=== PATIENT | male | born 1985 | race African-American/Black ===

== ENCOUNTER 2021-09-28 13:00 | Inpatient (IN) | payer SELFPAY ==
[2021-09-28] MEDS ORDERED: Ondansetron PF 4 MG/2 ML Vial ONE (13:29)
[2021-09-28 14:04] LABS: #Monocytes 0.6 10x3/uL (0.0-1.1); #Neutrophils 1.9 10x3/uL (1.5-8.4); %Basophils 0.2 % (0.0-2.0); %Eosinophils 0.2 % (0.0-6.0); %Monocytes 13.8 % (0.0-10.0); %Neutrophils 42.6 % (40.0-75.0); Hemoglobin 16.1 g/dL (13.5-17.5); Mean Corpuscular Hemoglobin 27.3 pg (27.0-33.0); Mean Corpuscular Volume 80.2 fl (81.2-95.1); Mean Platelet Volume 12.9 fl (7.4-10.4); Platelet Count 210 10x3/uL (150-450); RBC Distribution Width 13.7 % (11.5-14.5); White Blood Cell (WBC) Count 4.4 10x3/uL (3.5-10.5)
[2021-09-28 14:15] LABS: ALT (SGPT) 79 U/L (8-55); AST (SGOT) 111 U/L (5-34); Albumin 4.9 g/dL (3.5-5.0); Alkaline Phosphatase 55 U/L (40-110); Anion Gap 18 mmol/L (10-20); BUN (Urea Nitrogen) 24 mg/dL (8.9-20.6); Calc. Creatinine Clearance 0 mL/min (70-130); Calcium 11.3 mg/dL (7.8-10.44); Carbon Dioxide 27 mmol/L (22-29); Chloride 87 mmol/L (98-107); Estimated GFR 37; Globulin 5.1 g/dL (2.4-3.5); Glucose 120 mg/dL (70-105); Lipase 15 U/L (8-78); Potassium 4.3 mmol/L (3.5-5.1); Sodium 128 mmol/L (136-145)
[2021-09-28] MEDS ORDERED: Sodium Bicarbonate 75 MEQ in Dextrose 5% in Water 500 ML IV SCH (14:30)
[2021-09-28 14:52] LABS: SARS-CoV-2 NAA Rapid Test Not Detected (NotDetected)
[2021-09-28 14:56] LABS: Bilirubin Neg (Negative); Blood, Urine Negative (Negative); Clarity Clear (Clear); Glucose, Urine (Dipstick) Normal (Negative); Ketone, Urine 5 mg/dL (Negative); Leukocyte Negative (Negative); Nitrite Negative (Negative); Protein, Urine (Dipstick) Negative (Neg-Trace); Urobilinogen Normal mg/dL (Less than 2)
[2021-09-28 16:34] LABS: CKMB 6.8 ng/mL (0-6.6)
[2021-09-28] MEDS ORDERED: Ondansetron ODT 4 MG TAB PO PRN (16:51)
[2021-09-28] MEDS ORDERED: Acetaminophen 325 MG TAB PO PRN (16:51)
[2021-09-28] MEDS ORDERED: Acetaminophen 650 MG Suppository PR PRN (16:51)
[2021-09-28] MEDS ORDERED: Ondansetron PF 4 MG/2 ML Vial IVP PRN (16:51)
[2021-09-28] MEDS ORDERED: Guaifenesin DM 100-10/5 ML UDCUP PO PRN (16:51)
[2021-09-28 16:55] VITALS: BMI 33.7
[2021-09-28] MEDS ORDERED: Melatonin 3 MG TAB PO PRN (16:58)
[2021-09-28 19:05] LABS: Anion Gap 9 mmol/L (10-20); BUN (Urea Nitrogen) 21 mg/dL (8.9-20.6); Calc. Creatinine Clearance 88 mL/min (70-130); Calcium 10.5 mg/dL (7.8-10.44); Carbon Dioxide 34 mmol/L (22-29); Chloride 87 mmol/L (98-107); Estimated GFR 47; Glucose 82 mg/dL (70-105); Potassium 3.6 mmol/L (3.5-5.1); Sodium 126 mmol/L (136-145)
[2021-09-28] MEDS: Sodium Chloride 0.9% 1,000 ML IV SCH (19:31)
[2021-09-28] MEDS: Famotidine 20 MG TAB PO SCH (20:43)
[2021-09-29] MEDS: Sodium Chloride 0.9% 1,000 ML IV SCH (02:24)
[2021-09-29 03:59] LABS: Hemoglobin 14.8 g/dL (13.5-17.5); MDiff Complete? YES; Manual Diff?? YES; Mean Corpuscular Hemoglobin 27.7 pg (27.0-33.0); Mean Corpuscular Volume 81.3 fl (81.2-95.1); Mean Platelet Volume 12.4 fl (7.4-10.4); Platelet Count 170 10x3/uL (150-450); RBC Distribution Width 13.7 % (11.5-14.5); Red Blood Cell (RBC) Count 5.35 10x6/uL (4.32-5.72); White Blood Cell (WBC) Count 3.5 10x3/uL (3.5-10.5)
[2021-09-29 04:45] LABS: Eosinophils 1 % (0-10); Lymphocytes 54 % (21-51); Monocytes 18 % (0-10); Neutrophil 27 % (42-75)
[2021-09-29 04:46] LABS: Platelet Morphology Comment Appears Adequate; RBC Morphology Normal
[2021-09-29 09:00] LABS: Anion Gap 11 mmol/L (10-20); BUN (Urea Nitrogen) 16 mg/dL (8.9-20.6); Calc. Creatinine Clearance 106 mL/min (70-130); Calcium 9.6 mg/dL (7.8-10.44); Carbon Dioxide 33 mmol/L (22-29); Chloride 95 mmol/L (98-107); Estimated GFR 59; Glucose 99 mg/dL (70-105); Potassium 4.5 mmol/L (3.5-5.1); Sodium 134 mmol/L (136-145)
[2021-09-29] MEDS: Lactated Ringer's 1,000 ML IV SCH ×2 (09:00→17:43)
[2021-09-29] MEDS: Famotidine 20 MG TAB PO SCH ×2 (09:21→20:51)
[2021-09-29] MEDS: Enoxaparin Sodium 40 MG/0.4 ML SYRINGE SC SCH (10:13)
[2021-09-29] MEDS ORDERED: HYDROcodone/Acetaminophen 10/325 mg Tablet PO SCH (12:00)
[2021-09-29] MEDS: HYDROcodone/Acetaminophen 5/325 mg Tablet PO PRN ×2 (17:43→23:36)
[2021-09-30] MEDS: Lactated Ringer's 1,000 ML IV SCH ×3 (01:47→09:13)
[2021-09-30] MEDS ORDERED: Cyclobenzaprine 10 MG TAB PO SCH ×2 (03:00→09:30)
[2021-09-30 04:24] LABS: Anion Gap 16 mmol/L (10-20); BUN (Urea Nitrogen) 12 mg/dL (8.9-20.6); CK (CPK) 2231 U/L (30-200); Calc. Creatinine Clearance 120 mL/min (70-130); Carbon Dioxide 25 mmol/L (22-29); Chloride 100 mmol/L (98-107); Estimated GFR 69; Glucose 96 mg/dL (70-105); Potassium 4.5 mmol/L (3.5-5.1); Sodium 136 mmol/L (136-145)
[2021-09-30 04:34] VITALS: BP 165/98
[2021-09-30] MEDS: HYDROcodone/Acetaminophen 5/325 mg Tablet PO PRN ×2 (05:36→10:16)
[2021-09-30] MEDS: Enoxaparin Sodium 40 MG/0.4 ML SYRINGE SC SCH (09:14)
[2021-09-30] MEDS: Famotidine 20 MG TAB PO SCH (09:14)
[2021-09-30 10:03] VITALS: TEMP 97.8
== END 2021-09-30 11:45 | disposition home or self-care (01) | DRG 683 ==
LOC: CSHERS 13:00 → CSHTELE 15:44 → OBSVTOIN 09-30 06:48
PROVIDERS: ADMIT Internal Medicine; ATTEND Internal Medicine
DX: N17.9 Acute kidney failure, unspecified (principal); M62.82 Rhabdomyolysis; E87.1 Hypo-osmolality and hyponatremia; Z20.822 Contact with and (suspected) exposure to COVID-19; E86.0 Dehydration; I12.9 Hypertensive chronic kidney disease with stage 1 through stage 4 chronic kidney disease, or unspecified chronic kidney disease; D63.1 Anemia in chronic kidney disease; E83.51 Hypocalcemia; E83.52 Hypercalcemia; N18.30 Chronic kidney disease, stage 3 unspecified
CPT/HCPCS: 36415; 36416; 74150; 80048; 80053; 81003; 82550; 82553; 83690; 84484; 85025; 94760; G0378; J1650; J2405; J7050; J7070; J7120

== ENCOUNTER 2021-10-01 07:20 | Emergency (ER) | payer SELFPAY ==
[2021-10-01] MEDS ORDERED: Ondansetron PF 4 MG/2 ML Vial ONE (07:52)
[2021-10-01] MEDS ORDERED: Dexamethasone 10 MG/ML VIAL ONE (08:06)
[2021-10-01 08:20] LABS: #Monocytes 0.8 10x3/uL (0.0-1.1); #Neutrophils 5.2 10x3/uL (1.5-8.4); %Basophils 0.1 % (0.0-2.0); %Lymphocytes 21.1 % (18.0-47.0); %Monocytes 10.5 % (0.0-10.0); Hemoglobin 13.7 g/dL (13.5-17.5); Mean Corpuscular HGB CONC 33.7 g/dL (32.0-36.0); Mean Corpuscular Hemoglobin 27.6 pg (27.0-33.0); Mean Corpuscular Volume 81.7 fl (81.2-95.1); Mean Platelet Volume 12.7 fl (7.4-10.4); Platelet Count 153 10x3/uL (150-450); RBC Distribution Width 13.8 % (11.5-14.5); Red Blood Cell (RBC) Count 4.97 10x6/uL (4.32-5.72); White Blood Cell (WBC) Count 7.6 10x3/uL (3.5-10.5)
[2021-10-01 08:31] LABS: ALT (SGPT) 58 U/L (8-55); AST (SGOT) 52 U/L (5-34); Albumin 4.1 g/dL (3.5-5.0); Alkaline Phosphatase 53 U/L (40-110); Anion Gap 17 mmol/L (10-20); BUN (Urea Nitrogen) 10 mg/dL (8.9-20.6); Bilirubin, Total 1.4 mg/dL (0.2-1.2); CK (CPK) 946 U/L (30-200); Calc. Creatinine Clearance 0 mL/min (70-130); Calcium 9.9 mg/dL (7.8-10.44); Carbon Dioxide 25 mmol/L (22-29); Chloride 99 mmol/L (98-107); Estimated GFR 77; Globulin 4.2 g/dL (2.4-3.5); Glucose 103 mg/dL (70-105); Potassium 3.9 mmol/L (3.5-5.1); Protein, Total 8.3 g/dL (6.0-8.3); Sodium 137 mmol/L (136-145)
[2021-10-01] MEDS ORDERED: Ketorolac Tromethamine 30 MG/ML VIAL ONE (09:38)
[2021-10-01] MEDS ORDERED: HYDROcodone/Acetaminophen 10/325 mg Tablet ONE (09:39)
== END 2021-10-01 09:42 | disposition home or self-care (01) ==
LOC: CSHERS 07:20
DX: M13.0 Polyarthritis, unspecified (principal)
CPT/HCPCS: 80053; 82550; 85025; 93005; 96374; 96375; J1100; J1885; J2405